=== PATIENT | female | born 1975 | race Two or more races ===

== ENCOUNTER 2020-11-29 21:22 | Emergency (ER) | payer OTHER ==
[~2020-11-29] VITALS: Ht 167.6 cm; Wt 79.4 kg
[2020-11-29 22:30] VITALS: BP 162/95
[2020-11-29] MEDS ORDERED: IBUPROFEN 800 MG TAB PO ONE (23:15)
== END 2020-11-30 01:02 | disposition home or self-care (01) ==
LOC: ER 21:25
DX: S63.502A Unspecified sprain of left wrist, initial encounter (principal); S46.912A Strain of unspecified muscle, fascia and tendon at shoulder and upper arm level, left arm, initial encounter; S00.512A Abrasion of oral cavity, initial encounter; X58.XXXA Exposure to other specified factors, initial encounter; Y93.89 Activity, other specified; Y92.89 Other specified places as the place of occurrence of the external cause; Y99.8 Other external cause status
CPT/HCPCS: 29125; 72220; 73030; 73070; 73110